=== PATIENT | female | born 1955 | race Caucasian/White ===

== ENCOUNTER 2017-02-20 14:25 | Observation (INO) | payer MEDICARE, OTHER ==
[2017-02-17 15:56] VITALS: BMI 26.8
[2017-02-20] VITALS (20 sets, daily range): BP systolic 97–128; BP diastolic 58–82; PULSE 81–110; RESP 12–17; Ht 163.8 cm; Wt 72.4 kg
[~2017-02-20] VITALS: Ht 163.8 cm; Wt 72.4 kg
--- NOTE | 2017-02-20 13:36 | HPN ---
Date/Time of Note Date/Time of Note DATE: 02/20/17 TIME: 13:36 Interval H&P Admission Note Pt. seen H&P reviewed: No system changes PANFILO FLORES MD Feb 20, 2017 13:36
[~2017-02-20 14:25] MED LIST: DIVA125T14 PO; ESCI20TA PO; LEVE500S8 PO; PALI1.5T PO
[2017-02-20] MEDS ORDERED: ROCURONIUM 50 MG INJ ONE (15:03)
[2017-02-20] MEDS ORDERED: CEFAZOLIN 1 GM INJ ONE (15:03)
[2017-02-20] MEDS ORDERED: PROPOFOL 20 ML ONE (15:03)
[2017-02-20] MEDS ORDERED: ROPIVACAINE 0.5 % 30 ML VIAL ONE ×3 (15:04→17:32)
[2017-02-20] MEDS ORDERED: ROPIVACAINE 0.2% 20 ML VIAL ONE (15:04)
[2017-02-20] MEDS ORDERED: MIDAZOLAM 1 MG/ML 2 ML INJ ONE (15:04)
--- NOTE | 2017-02-20 15:35 | RADRPT ---
PROCEDURE: XR Chest. CLINICAL INDICATION: Preop TECHNIQUE: Single portable view of the chest was obtained. COMPARISON: None. FINDINGS: Cardiac/vascular structures: Normal cardiomediastinal silhouette. Pulmonary: Lungs are clear. No pleural effusion. No evidence of pneumothorax. Osseous structures: Normal Soft tissues: Normal IMPRESSION: No acute cardiopulmonary disease. RPTAT:AAJJ Physician Jl Date Time Electronically viewed and signed by Sarai Reed Physician on 02/20/2017 15:34 /
[2017-02-20 16:03] LABS: CALCIUM 9.5 mg/dl (8.4-10.2); CREATININE 0.62 mg/dl (0.44-1.00); POTASSIUM 4.5 mmol/L (3.5-5.1)
[2017-02-20] MEDS ORDERED: DIPHENHYDRAMINE 25 MG CAP PO PRN (16:30)
[2017-02-20] MEDS ORDERED: ONDANSETRON 4 MG INJ IV PRN ×2 (16:30→18:00)
[2017-02-20] MEDS ORDERED: CEFAZOLIN 1 GM INJ IV SCH (16:30)
[2017-02-20 16:41] LABS: INR 0.87; PROTIME 11.8 Sec (12.2-14.2); PT RATIO 0.9
[2017-02-20 16:42] LABS: PARTIAL THROMBOPLASTIN TIME 32.5 Sec (25.0-35.0)
[2017-02-20] MEDS ORDERED: HYDROmorphONE 2 MG/ML SYG ONE (17:09)
[2017-02-20] MEDS ORDERED: BACITRACIN/POLYMYXIN 28.35 GM OINT TOP ONE ×2 (17:28→17:32)
[2017-02-20] MEDS ORDERED: POLYMYXIN/BACITRACIN 1L IRRIG ONE ×2 (17:28→17:32)
[2017-02-20] MEDS ORDERED: DIPHENHYDRAMINE 50 MG INJ IV PRN (18:00)
[2017-02-20] MEDS ORDERED: EPHEDrine SULFATE 50 MG/5 ML SYG IV PRN (18:00)
[2017-02-20] MEDS ORDERED: METOCLOPRAMIDE 10 MG INJ IV PRN (18:00)
[2017-02-20] MEDS ORDERED: FENTAnyl 50 MCG/ML VIAL IV PRN ×3 (18:00)
[2017-02-20] MEDS ORDERED: morphine (1 MG/ML) 10ML SYRINGE IV PRN ×3 (18:00)
[2017-02-20] MEDS ORDERED: LABETALOL HCL 20MG INJ IV PRN (18:00)
[2017-02-20] MEDS ORDERED: KETOROLAC 30 MG INJ IV PRN (18:00)
[2017-02-20] MEDS ORDERED: hydrALAzine 20 MG INJ IV PRN (18:00)
[2017-02-20] MEDS ORDERED: MEPERIDINE 25 MG INJ IV PRN (18:00)
[2017-02-20] MEDS ORDERED: HYDROmorphONE (0.2 MG/ML) 10ML SYG IV PRN ×3 (18:00)
[2017-02-20] MEDS ORDERED: OXYCODONE/ACETAMINOPHEN (5/325) TAB PO PRN ×2 (18:00)
[2017-02-20] MEDS ORDERED: SUGAMMADEX SODIUM 200 MG/2 ML VIAL IV ONE (18:00)
[2017-02-20] MEDS ORDERED: ACETAMINOPHEN 1000MG/100ML IV 100 ML ONE (18:15)
[2017-02-20] MEDS ORDERED: ONDANSETRON 4 MG INJ ONE (18:16)
[2017-02-20] MEDS ORDERED: DEXAMETHASONE 4 MG/ML 1 ML INJ ONE (18:17)
[2017-02-20] MEDS ORDERED: KETOROLAC 30 MG INJ ONE (18:17)
[2017-02-20] MEDS ORDERED: METOCLOPRAMIDE 10 MG INJ ONE (18:17)
--- NOTE | 2017-02-20 18:54 | SIPON ---
Date/Time of Note Date/Time of Note DATE: 02/20/17 TIME: 18:52 Operative Report Preoperative Diagnosis Left ankle bimalleolar ankle fracture Postoperative Diagnosis Left ankle bimalleolar ankle fracture Operation/Procedure Performed Left ankle lateral malleolus ORIF Left ankle medial malleolus closed reduction with casting treatment Surgeon Rober Flores MD fitter's assistant Evy Martinez MD Anesthesia: general, other (Popliteal) Estimated blood loss: minimal Transfusion Required none Specimen none Grafts/Implants Arthrex Fibulock Nail with 2.7 screw and endcap Complications none ROBER FLORES MD Feb 20, 2017 18:54
--- NOTE | 2017-02-20 18:57 | OPR ---
Date/Time of Note Date/Time of Note DATE: 02/20/17 TIME: 18:54 Operative Report Procedure Date: Feb 20, 2017 Preoperative Diagnosis Left ankle bimalleolar ankle fracture Postoperative Diagnosis Left ankle bimalleolar ankle fracture Operation/Procedure Performed Left ankle lateral malleolus ORIF with allograft Left ankle medial malleolus closed reduction with casting treatment Surgeon Panfilo Flores MD Hide Paster Javon Martinez MD Anesthesia Type: general, other (popliteal) Anesthesiologist: JACQUI FREEMAN MD Tourniquet Time: 53 min at 250 mm Hg Estimated Blood Loss: minimal Transfusion none Specimen none Grafts/Implants Arthrex Fibulock Nail with 2.7 mm screw and endcap Tubes/Drains none Complications none Pt Condition Post Procedure: stable Disposition: PACU Indications Patient is a 61-year-old female who sustained a right lateral malleolus displaced ankle fracture in the setting of a non displaced medial malleolus fracture was indicated for surgery. Risk Note: Patient was explained the risks and benefits of surgery and the patient's yurok language including not limited to infection, bleeding, injury to blood vessels, nerves, ligaments or tendons. Risks of anesthesia, deep vein thrombosis and need for reduce future surgery. Patient acknowledged these risk by signing the surgical consent form. Procedure Description Patient was met in the preoperative holding area and the correct operative summary was confirmed with the patient and consent and marked accordingly. Patient was then given preoperative regional block anesthesia and antibiotics. Patient was then prepped and draped in the normal sterile fashion and a timeout was taken. Patient was brought to the operative theater and placed supine on operative table. All parties in the room agreed it was patient, extremity and procedure. Tourniquet was brought up to 250 mmHg. Incision was made over the fibular fracture and hematoma and callus was debrided. The fracture was then reduced and shown to be in perfect reduction both on the AP oblique and lateral position, however extensive osteoporosis and comminution was seen anterolaterally. The entry point of the nail was established using 1.6 m millimeter K wire. This was done under fluoroscopy under both ap and lateral to ensure that the K wire was in the center of the canal. Once the K wire was well positioned, A 6.2 mm reamer was then used to start the opening part of the remaining part in the canal and driven up past the fracture site. While the fracture was being held in reduction. Then proximal reaming was done with a 3.2 mm reamer over the guidewire and through the tissue protector into the depth indicator collar is within the bone. The outrigger was assembled with the nail in it so that the nail shaft angled upwards toward yet regular. The nail which was a 3.0130 mm Arthrex Fibulock nail was then inserted. This was done under fluoroscopy to ensure that the end of the case K wire part was shown to be at the tip of the fibula which was buried appropriately. The distal syndesmotic screw hole was also identified to be appropriately buried at the right site. The nail was then accentuated once it was shown to be in the appropriate anterior and lateral position. And the talons were released. The nail was then locked distally with a 12 x 2.7mm cortical screw. The medial malleolus was found to be well reduced at this time. The end cap was then placed at the distal fibula at the distal portion of the nail to fully seat the end cap Once this was done the nail was shown to be in excellent position and the fracture to be in excellent position with the fracture brought out to both length alignment and rotation appropriately. There was found to be some comminution over the anteriorlateral aspect of the fibula and given that some bone loss was seen this was then packed with allograft Manjinder DBM. All wounds were irrigated thoroughly and the wounds were closed in layers with 2 -0 Vicryl followed by a 3-0 Monocryl and a 4-0 nylon in a running vertical mattress fashions. The wound was dressed with Xeroform, triple antibiotic ointment and placed in a well-padded short leg splint with 5 ABDs and 5 Webrils. At the end the case all sponge needle counts were correct. Patient brought to the PACU in stable condition. Her toes are warm and well-perfused. PANFILO FLORES MD Feb 20, 2017 18:57
[2017-02-20] MEDS: morphine 10 MG INJ IV PRN (22:46)
[2017-02-20] MEDS: CEFAZOLIN 1 GM/50 ML (PMX) 50 ML IVPB SCH (22:48)
[2017-02-21] MEDS: oxyCODONE 5 MG TAB PO PRN ×4 (01:14→19:12)
[2017-02-21 02:13] VITALS: BP 106/57; RESP 20
[2017-02-21] MEDS: morphine 10 MG INJ IV PRN (03:03)
[2017-02-21] MEDS: HYDROmorphONE 1 MG/ML SYG IV PRN ×5 (04:29→18:36)
[2017-02-21] MEDS: CEFAZOLIN 1 GM/50 ML (PMX) 50 ML IVPB SCH ×2 (06:43→15:33)
[2017-02-21 08:35] VITALS: BP 108/62; RESP 18
[2017-02-21] MEDS ORDERED: PREGABALIN 75 MG CAP PO SCH (09:00)
[2017-02-21 14:32] VITALS: BP 110/65; RESP 18
--- NOTE | 2017-02-21 15:53 | CONS ---
Date/Time of Note Date/Time of Note DATE: 02/21/17 TIME: 15:51 Assessment/Plan Assessment/Plan Chief Complaint/Hosp Course Assessment and plan 1. Bimalleolar fracture of the left ankle. Patient status post surgical intervention. Physical therapy. Analgesics as needed. 2. History of schizoaffective affective disorder. Will resume patient's Seroquel. 3. History of seizure. Continue on Keppra. Consultation process time greater than 40 minutes Discussed plan of care with Dr. Diehl Problems: Consultation Date/Type/Reason Admit Date/Time Feb 20, 2017 at 16:43 Reason for Consultation Medical management Hx of Present Illness This is a 61-year-old female with history of schizoaffective disorder, seizure, was brought to [facility] due to left ankle bimalleolar fracture. Patient reportedly had her accident 2 weeks ago when she was in her bathroom and tripped and fell. She denies any loss of consciousness but did feel a little bit dizzy after the event. She reports having worsening pain on the left ankle but reportedly walked on it for 4-5 days but pain progressively got worse. She subsequently went to her physician and was found to have fracture of the left ankle. She is now admitted for elective surgery for left ankle open reduction and internal fixation of bimalleolar area. She did tolerate procedure well. BMP unremarkable and CBC is pending. She remains afebrile. She does report good pain control. Denies any chest pain or shortness of breath or any other associated symptoms. She does appear comfortable at present. She has been able to work with physical therapy on crutches. We will evaluate her for the aforementioned issues. 12 point review of systems obtained and entirely negative except as mentioned in the history of present illness Past Medical History Medical/surgical history schizoaffective disorder, seizure Past Surgical History Past Surgical Hx: no surgical history Social History Alcohol Use: none Smoking Status: Former smoker Drug Use: none Exam/Review of Systems Vital Signs Vitals Vital Signs Date Time Temp Pulse Resp B/P Pulse Ox O2 Delivery O2 Flow Rate FiO2 02/21/17 14:32 97.8 76 18 110/65 94 02/20/17 22:35 Room Air 02/20/17 19:25 2.0 Intake and Output 02/20/17 02/20/17 02/21/17 15:00 23:00 07:00 Intake Total 700 ml 730 ml Output Total 860 ml 800 ml Balance -160 ml -70 ml Exam Constitutional: alert, oriented Psych: nl mood/affect Head: normocephalic Neck: non-tender, supple Respiratory: clear to auscultation Cardiovascular: regular rate and rhythm Gastrointestinal: nl liver, spleen, soft Musculoskeletal: other (Left ankle in cast. Pulses palpable.) Neurological: OUTPATIENT PHYSICAL THERAPIST ASSISTANT II-XII intact, nl mental status, nl speech Skin: nl turgor Results Result Diagram: 02/20/17 1527 Medications Medications Current Medications Ondansetron HCl (Zofran Inj) 4 mg Q4H PRN IV NAUSEA AND/OR VOMITING Last administered on 02/20/17 23:21; Admin Dose 4 MG; Start 02/20/17 at 16:30 Diphenhydramine HCl (Benadryl) 25 mg Q4H PRN PO ITCHING; Start 02/20/17 at 16: 30 Oxycodone HCl 10 mg 10 mg Q4H PRN PO PAIN Last administered on 02/21/17 12:51 ; Admin Dose 10 MG; Start 02/20/17 at 16:30 Cefazolin Sodium (Ancef 1 Gm/50 ml (Pmx)) 50 ml @ 100 mls/hr Q8H IVPB Last administered on 02/21/17 15:33; Admin Dose 100 MLS/HR; Start 02/20/17 at 23: 00; Stop 02/22/17 at 15:29 Pregabalin (Lyrica) 150 mg BID PO Last administered on 02/21/17 08:38; Admin Dose 150 MG; Start 02/21/17 at 09:00 Hydromorphone HCl (Dilaudid) 1 mg Q3H PRN IV PAIN LEVEL 8-10 Last administered on 02/21/17 15:28; Admin Dose 1 MG; Start 02/21/17 at 04:30 Escitalopram Oxalate (Lexapro) 20 mg DAILY PO ; Start 02/22/17 at 09:00; Status UNV Levetiracetam (Keppra Liquid) 500 mg BID PO ; Start 02/21/17 at 21:00; Status UNV LEYLA YEUNG Feb 21, 2017 15:53
[2017-02-21] MEDS ORDERED: BISACODYL 10 MG SUPP PR PRN (16:00)
[2017-02-21] MEDS ORDERED: NACL 0.9% 3 ML SYG IV SCH (16:00)
[2017-02-21] MEDS ORDERED: MAGNESIUM HYDROXIDE 30ML CUP PO PRN (16:00)
[2017-02-21] MEDS ORDERED: DOCUSATE SODIUM 100 MG CAP PO PRN (16:00)
--- NOTE | 2017-02-21 16:49 | RADRPT ---
PROCEDURE: Intraoperative imaging of the left ankle with fluoroscopy. CLINICAL INDICATION: Left ankle pain. Intraoperative. TECHNIQUE: Images of the left ankle were obtained in the operating room with an image intensifier. No radiologist was in attendance. Fluoroscopy time is 56 seconds and 16 images were obtained. COMPARISON: No prior study is available for comparison. FINDINGS: Images demonstrate placement of a tatianna and surgical screw transfixing a fracture of the distal fibula . IMPRESSION: 1. Intraoperative imaging of the left ankle. RPTAT: QQ .Buddy Hankins MD, MD Date Time Electronically viewed and signed by .Buddy Hankins MD, MD on 02/21/2017 16:48 .R/
--- NOTE | 2017-02-21 18:43 | DS ---
Date/Time of Note Date/Time of Note DATE: 02/21/17 TIME: 18:43 Discharge Summary Admission/Discharge Info Admit Date/Time Feb 20, 2017 at 16:43 Discharge Date/Time 02/21/17 Discharge Diagnosis Left ankle bimalleolar ankle fracture Patient Condition: Good Consults IM Procedures Left ankle lateral malleolus ORIF Left ankle medial malleolus closed reduction with casting treatment Hospital Course Patient was admitted post op s/p Left ankle lateral malleolus ORIF Left ankle medial malleolus closed reduction with casting treatment Her pain was well controlled after 1 day and she was NVID to the exposed toes. She was greatly improved Home Meds Reported Medications Paliperidone (Invega) 1.5 Mg Tab.er.24, 1.5 MG PO DAILY, TAB 02/17/17 Escitalopram Oxalate* (Lexapro*) 20 Mg Tablet, 20 MG PO DAILY, #30 TAB 02/17/17 Levetiracetam* (Keppra*) 500 Mg/5 Ml Solution, 500 MG PO BID, BOTTLE 12/14/14 Discontinued Reported Medications Divalproex Sodium* (Depakote*) 125 Mg Tablet.dr, 125 MG PO QID, #120 TAB 02/17/17 Mirtazapine* (Remeron*) 15 Mg Tablet, 15 MG PO HS, TAB 07/11/15 Hydroxyzine Pamoate* (Hydroxyzine Pamoate*) 50 Mg Capsule, 50 MG PO BID Y for panic attacks , #30 CAP 07/11/15 Clobetasol Propionate* (Clobetasol Propionate*) 15 Gm Oint, 1 APPLIC TOP DAILY for psoriasis, #1 TUB 04/02/15 Benztropine Mesylate* (Benztropine Mesylate*) 1 Mg Tablet, 1 MG PO BID, TAB 04/02/15 Escitalopram Oxalate* (Lexapro*) 20 Mg Tablet, 20 MG PO DAILY, TAB 12/14/14 Discontinued Scripts Hydromorphone Hcl* (Dilaudid*) 2 Mg Tablet, 2 MG PO Q6H Y for PAIN LEVEL 8-10, # 20 TAB Prov:SEBASTIEN CAZARES 07/18/15 Follow-up Plan With Dr. Flores in 1 week Primary Care Provider [facility] Time spent on discharge: < 30 minutes PANFILO FLORES MD Feb 21, 2017 18:43
--- NOTE | 2017-02-21 18:43 | PN ---
Date/Time of Note Date/Time of Note DATE: 02/21/17 TIME: 18:43 Assessment/Plan Lines/Catheters IV Catheter Type (from Nrsg): Saline Lock Brown in Place (from Nrsg): No Assessment/Plan Assessment/Plan POD# 1 s/p Left ankle lateral malleolus ORIF Left ankle medial malleolus closed reduction with casting treatment - NWB to LLE - PT to GT - TEds, xarelto - pend vit d 25 - DC home when pain controlled today Garo Flores MD Subjective 24 Hr Interval Summary Patient doing much better. Pain is controlled Constitutional: improved Feeding: advancing diet Pain Control: well controlled Exam/Review of Systems Vital Signs Vitals Vital Signs Date Time Temp Pulse Resp B/P Pulse Ox O2 Delivery O2 Flow Rate FiO2 02/21/17 14:32 97.8 76 18 110/65 94 02/20/17 22:35 Room Air 02/20/17 19:25 2.0 Intake and Output 02/20/17 02/20/17 02/21/17 15:00 23:00 07:00 Intake Total 700 ml 730 ml Output Total 860 ml 800 ml Balance -160 ml -70 ml Exam Constitutional: alert, oriented, well developed Musculoskeletal: other (LLE/ splint intact, toes wiggle, silt to the exposed toes, cr brisk toes wwp) Results Result Diagram: 02/20/17 1527 PANFILO FLORES MD Feb 21, 2017 18:43
--- NOTE | 2017-02-21 18:44 | PDOCDIS ---
Discharge Instructions DIAGNOSIS Discharge Diagnosis Left ankle bimalleolar ankle fracture CONDITION Patient Condition: Good HOME CARE INSTRUCTIONS: Diet Instructions: Regular ACTIVITY: Activity Restrictions: Do not Drive Do not operate Machinery Do not operate Power Tool Avoid Heavy Housework Keep Limb Elevated No Weight Bearing Bathing Restrictions: Shower FOLLOW UP/APPOINTMENTS Follow-up Plan with Dr. Flores in 1 week PANFILO FLORES MD Feb 21, 2017 18:44
[2017-02-21 19:46] VITALS: BP 130/70; PULSE 92; RESP 18
[2017-02-21] MEDS ORDERED: LEVETIRACETAM (100 MG/ML) 5ML CUP PO SCH (21:00)
[2017-02-22] MEDS ORDERED: PANTOPRAZOLE (EC) 40 MG TAB PO SCH (06:00)
[2017-02-22] MEDS ORDERED: ESCITALOPRAM 10 MG TAB PO SCH (09:00)
== END 2017-02-21 20:15 | disposition home or self-care (01) ==
LOC: SDS 14:25 → REC 16:43 → MS1 19:50
PROVIDERS: ADMIT Orthopaedic Surgery; ATTEND Orthopaedic Surgery
DX: S82.842A Displaced bimalleolar fracture of left lower leg, initial encounter for closed fracture (principal); I10 Essential (primary) hypertension; F25.9 Schizoaffective disorder, unspecified; G40.909 Epilepsy, unspecified, not intractable, without status epilepticus; Z87.891 Personal history of nicotine dependence; W01.0XXA Fall on same level from slipping, tripping and stumbling without subsequent striking against object, initial encounter; Y93.9 Activity, unspecified; Y99.9 Unspecified external cause status; Y92.002 Bathroom of unspecified non-institutional (private) residence as the place of occurrence of the external cause
CPT/HCPCS: 27762; 27792; 71010; 73610; 80048; 82306; 85610; 85730; C1713; G0378; J0131; J0690; J1100; J1170; J1885; J2175; J2250; J2270; J2405; J2765; J2795; J3010; 99217